=== PATIENT | female | born 1985 | race Caucasian/White ===

== ENCOUNTER 2016-11-21 20:50 | Emergency (ER) | payer MEDICAID, OTHER ==
[~2016-11-21] VITALS: Ht 165.1 cm; Wt 56.7 kg
[~2016-11-21 20:50] MED LIST: AZIT250T PO; HYDR1TAB12 PO; ONDA8TAB12 PO; PREN1TAB58 PO
[2016-11-21 21:03] VITALS: BP 102/56
--- NOTE | 2016-11-21 21:15 | ED.ADGEN ---
Past History Past Medical History: No Pertinent History Past Surgical History: No Surgical History Alcohol Use: None Drug Use: None Adult General HPI HPI Patient is a 31-year-old woman, history of tubal ligation, who presents to the emergency department with a complaint of chest pain and tightness across the anterior portion of her chest, with cough, sore throat, and body aches that began today. Patient denies any sick contacts or exposures, states she feels as though "it is hard to breathe", states cough is nonproductive. Also complaining of upper abdominal cramping, no nausea or vomiting. Denies any swelling extremities, any rashes, any recent travel or procedures, any ingestions or exposures. No history of DVT or PE in self or family members. Patient with oxygen saturation of 99-00% room air, blood pressure is 102/56, heart rate of 81 upon arousing the emergency department. Respiratory rate is 18-20 and unlabored. Review of Systems Review of Systems Constitutional: Denies fever or chills [] Eyes: Denies change in visual acuity, redness, or eye pain [] HENT: Denies nasal congestion, complaining of sore throat times one day. Respiratory: Cough nonproductive, with shortness of breath and anterior chest wall tightness. Cardiovascular: No additional information not addressed in HPI [] GI: Denies abdominal pain, nausea, vomiting, bloody stools or diarrhea [] : Denies dysuria or hematuria [] Musculoskeletal: Denies back pain or joint pain, is complaining of body aches throughout her back. Integument: Denies rash or skin lesions [] Neurologic: Denies headache, focal weakness or sensory changes [] Endocrine: Denies polyuria or polydipsia [] Current Medications Current Medications Current Medications Medications (Trade) Dose Ordered Sig/Liana Start Time Stop Time Status Last Admin Dose Admin Multi-Ingredient Mouthwash/Gargle (Gi Cocktail) 20 ml 1X ONCE 11/21/16 21:30 11/21/16 21:31 DC 11/21/16 21:30 20 ML Naproxen (Naprosyn) 500 mg 1X ONCE 11/21/16 21:30 11/21/16 21:31 DC 11/21/16 21:30 500 MG Ondansetron HCl (Zofran Odt) 4 mg 1X ONCE 11/21/16 22:00 11/21/16 22:01 DC 11/21/16 21:34 4 MG Allergies Allergies Allergies Coded Allergies Type Severity Reaction Last Updated Verified Iodinated Contrast- Oral and IV Dye Allergy Severe 11/21/16 Yes levofloxacin Allergy Severe SEIZURE 12/23/13 No promethazine Allergy Severe SEIZURE 12/23/13 No Physical Exam Physical Exam Constitutional: Well developed, well nourished, no acute distress, non-toxic appearance. [] HENT: Normocephalic, atraumatic, bilateral external ears normal, oropharynx moist, mild injection of the oropharynx, no exudates. No oral exudates, nose normal. [] Eyes: PERRLA, EOMI, conjunctiva normal, no discharge. [] Neck: Normal range of motion, no tenderness, supple, no stridor. [] Cardiovascular:Heart rate regular rhythm, no murmur , S1, S2, rubs or gallops, reproducible anterior chest wall tenderness with palpation. No lesions identified no signs of trauma.[] Lungs & Thorax: Bilateral breath sounds clear to auscultation , no wheezing, rhonchi, rales.[] Abdomen: Bowel sounds normal, soft, no tenderness, no masses, no pulsatile masses. [] Skin: Warm, dry, no erythema, no rash. [] Back: No tenderness, no CVA tenderness. [] Extremities: No tenderness, no cyanosis, no clubbing, ROM intact, no edema. Negative Homans sign.[] Neurologic: Alert and oriented X 3, normal motor function, normal sensory function, no focal deficits noted. [] Psychologic: Affect normal, judgement normal, mood normal. [] Current Patient Data Vital Signs Vital Signs Date Time Temp Pulse Resp B/P (MAP) Pulse Ox O2 Delivery O2 Flow Rate FiO2 11/21/16 23:01 77 20 109/59 (76) 99 Room Air 11/21/16 21:03 98.0 EKG EKG EC: Sinus rhythm, heart rate 71 beats/minute, upright axis, QTC of 426, ID 138, QRS of 70, no ST elevations or depressions, no acute ST abnormalities. As interpreted by me. No prior for comparison.[] Radiology/Procedures Radiology/Procedures Chest x-ray: PA and lateral 2 view: Normal cardiopulmonary silhouette, no infiltrates, no effusions, no pneumothorax, no soft tissue or bony abnormalities identified. As interpreted by me. Course & Med Decision Making Course & Med Decision Making Pertinent Labs and Imaging studies reviewed. (See chart for details) Patient's examination is most consistent with a viral illness, with constellation of cough, sore throat, mild abdominal pain, muscle aches. Chest x- ray obtained did not reveal any evidence of concerning findings, ECG unremarkable, patient was given a GI cocktail the ED, which she did not tolerate well, due to lidocaine. Patient received Zofran, and was feeling better on reevaluation. Urine hCG was negative. I did discuss findings with patient, she is feeling better as stated, vital signs remained stable, with no concerning findings identified. Discussed use [id number] medications, hydration, and Tessalon Perle for discomfort, and concerning symptoms that prompt return to the emergency department for additional evaluation. Patient voiced understanding and agreement plan as stated. Discharged home in stable condition plan, precautions, and prescriptions as stated. Final Impression Final Impression [] Problems: Dragon Disclaimer Dragon Disclaimer This electronic medical record was generated, in whole or in part, using a voice recognition dictation system. Departure: Impression: Primary Impression: Viral illness Additional Impression: Cough Disposition: HOME, SELF-CARE Condition: IMPROVED Scripts Benzonatate (TESSALON PERLE) 100 Mg Capsule 100 MG PO PRN TID Y for COUGH, #15 CAP Prov: PATRICIA MCKEON DO 11/21/16 PATRICIA MCKEON DO Nov 21, 2016 21:15
[2016-11-21] MEDS ORDERED: LIDO:MAALOX 1:1 20 ML SINGLE DOSE PO ONE (21:30)
[2016-11-21] MEDS ORDERED: NAPROXEN 500 MG TABLET PO ONE (21:30)
[2016-11-21] MEDS ORDERED: ONDANSETRON ODT 4 MG TAB.RAPDIS PO ONE (22:00)
[2016-11-21] MEDS ORDERED: BENZ100C PO (22:43)
--- NOTE | 2016-11-22 04:19 | EKG ---
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
--- NOTE | 2016-11-22 09:06 | RAD ---
CHEST PA LATERAL Technique: PA and lateral views of the chest were obtained. Clinical History: Chest pain Comparison: None. Findings: The heart and pulmonary vasculature appear within normal limits. The lungs are clear. The pleural margins are clear. Impression: No acute chest process is seen.
== END 2016-11-21 22:57 | disposition home or self-care (01) ==
LOC: ER 20:50
DX: B34.9 Viral infection, unspecified (principal); R10.10 Upper abdominal pain, unspecified; Z98.51 Tubal ligation status; Z88.8 Allergy status to other drugs, medicaments and biological substances; Z88.1 Allergy status to other antibiotic agents; Z91.041 Radiographic dye allergy status
CPT/HCPCS: 71020; 81025; 93005; 99284; Q0162

== ENCOUNTER 2018-03-18 18:59 | Emergency (ER) | payer MEDICAID, OTHER ==
[~2018-03-18] VITALS: Ht 165.1 cm; Wt 48.3 kg
[~2018-03-18 18:59] MED LIST changes: +BENZ100C PO
--- NOTE | 2018-03-18 19:23 | PHYS DOC ---
Past History Past Medical History: No Pertinent History Past Surgical History: Tubal ligation Alcohol Use: None Drug Use: None Adult General Chief Complaint Chief Complaint: HIP PAIN HPI HPI 32-year-old female presents with right hip and knee pain. The patient was carrying laundry down some steps when she missed a step and fell. She believes that she fell down about 7 steps. She did not hit her head. She was not knocked unconscious. She has pain in her right hip and right knee. She is able to walk but is uncomfortable. She said she has the greatest pain with external rotation of the right hip. She denies significant back pain. She denies numbness, tingling, or change in sensation. She has had no previous injuries to this hip or knee. She denies fever or chills. Review of Systems Review of Systems Constitutional: Denies fever or chills [] Eyes: Denies change in visual acuity, redness, or eye pain [] HENT: Denies nasal congestion or sore throat [] Respiratory: Denies cough or shortness of breath [] Cardiovascular: No additional information not addressed in HPI [] GI: Denies abdominal pain, nausea, vomiting, bloody stools or diarrhea [] : Denies dysuria or hematuria [] Musculoskeletal: Right hip and right knee pain[] Integument: Denies rash or skin lesions [] Neurologic: Denies headache, focal weakness or sensory changes [] Endocrine: Denies polyuria or polydipsia [] All other systems were reviewed and found to be within normal limits, except as documented in this note. Allergies Allergies Allergies Coded Allergies Type Severity Reaction Last Updated Verified Iodinated Contrast- Oral and IV Dye Allergy Severe 11/21/16 Yes aluminum hydroxide Allergy Severe vomiting and syncope 03/18/18 Yes levofloxacin Allergy Severe SEIZURE 12/23/13 No magnesium hydroxide Allergy Severe vomiting and syncope 03/18/18 Yes promethazine Allergy Severe SEIZURE 12/23/13 No simethicone Allergy Severe vomiting and syncope 03/18/18 Yes Physical Exam Physical Exam Constitutional: Well developed, well nourished, no acute distress, non-toxic appearance. [] HENT: Normocephalic, atraumatic, bilateral external ears normal, oropharynx moist, no oral exudates, nose normal. [] Eyes: PERRLA, EOMI, conjunctiva normal, no discharge. [] Neck: Normal range of motion, no tenderness, supple, no stridor. [] Cardiovascular:Heart rate regular rhythm, no murmur [] Lungs & Thorax: Bilateral breath sounds clear to auscultation [] Abdomen: Bowel sounds normal, soft, no tenderness, no masses, no pulsatile masses. [] Skin: Warm, dry, no erythema, no rash. [] Back: No tenderness, no CVA tenderness. [] Extremities: Pain with compression of the right hip. No ecchymosis. Right knee pain with palpation on the lateral side, no ecchymosis or swelling.[] Neurologic: Alert and oriented X 3, normal motor function, normal sensory function, no focal deficits noted. [] Psychologic: Affect normal, judgement normal, mood normal. [] Current Patient Data Vital Signs Vital Signs Date Time Temp Pulse Resp B/P (MAP) Pulse Ox O2 Delivery O2 Flow Rate FiO2 03/18/18 19:06 97.5 69 20 100 Room Air EKG EKG [] Radiology/Procedures Radiology/Procedures [] Impressions: Preliminary interpretation: The patient's hip and knee x-rays are negative for fracture or dislocation. Course & Med Decision Making Course & Med Decision Making Pertinent Labs and Imaging studies reviewed. (See chart for details) The patient's x-rays are negative for fracture. I cannot rule out labral pathology, tendon tear or muscle strain. I will treat the patient with a short course of workup [id number] for pain. I have advised her that if her pain is not rapidly improving the next couple of days, that she should follow up with her PCP for further orthopedic evaluation. She is stable for discharge at this time. [] Dragon Disclaimer Dragon Disclaimer This electronic medical record was generated, in whole or in part, using a voice recognition dictation system. Departure Departure: Impression: Primary Impression: Acute right hip pain Additional Impressions: Fall down stairs Acute pain of right knee Disposition: 01 HOME, SELF-CARE Condition: STABLE Referrals: NON,STAFF (PCP) Patient Instructions: Hip Pain Scripts Hydrocodone Bit/Acetaminophen (NORCO 5-325 TABLET) 1 Each Tablet 1 TAB PO PRN Q6HRS PRN for PAIN, #10 TAB 0 Refills Prov: GRETA ENNIS DO 03/18/18 Problem Qualifiers Additional Impressions: Fall down stairs Encounter type: initial encounter Qualified Codes: W10.8XXA - Fall (on) ( from) other stairs and steps, initial encounter GRETA ENNIS DO Mar 18, 2018 19:23
[2018-03-18] MEDS ORDERED: KETOROLAC 30 MG/ML VIAL. IM ONE (19:30)
[2018-03-18] MEDS ORDERED: HYDR-3165 PO (19:57)
[2018-03-18 20:01] VITALS: BP 97/60
--- NOTE | 2018-03-18 23:34 | RAD ---
Examination: KNEE RIGHT 3V History: FALL DOWN STAIRS, RIGHT KNEE PAIN Comparison/Correlation: None Findings: Total 3 images of the right knee were obtained. Joint spaces are normal. No acute fracture or bony destruction. No joint effusion definitely seen. Soft tissues are unremarkable. Impression: Normal right knee 3 view x-ray exam. Electronically signed by: Alfredo Martinez MD (03/18/2018 11:30 PM) [facility]
--- NOTE | 2018-03-18 23:35 | RAD ---
Examination: HIP RIGHT 2V WITH PELVIS History: FALL DOWN STARS, RIGHT HIP PAIN Comparison/Correlation: None Findings: Frontal view pelvis, frontal view right hip, and frog-leg lateral view right hip were obtained. Joint spaces are normal. No fracture or bony destruction. Soft tissues are unremarkable. Impression: No fracture. No degenerative change. Electronically signed by: Alfredo Martinez MD (03/18/2018 11:31 PM) [facility]
== END 2018-03-18 20:05 | disposition home or self-care (01) ==
LOC: ER 18:59
DX: M25.551 Pain in right hip (principal); M25.561 Pain in right knee; G89.11 Acute pain due to trauma; Z91.041 Radiographic dye allergy status; Z88.1 Allergy status to other antibiotic agents; Z88.8 Allergy status to other drugs, medicaments and biological substances; W10.8XXA Fall (on) (from) other stairs and steps, initial encounter; Y93.89 Activity, other specified; Y92.89 Other specified places as the place of occurrence of the external cause; Y99.8 Other external cause status
CPT/HCPCS: 73502; 73562; 96372; 99283; J1885; 99284

== ENCOUNTER 2018-05-23 20:39 | Emergency (ER) | payer OTHER ==
[~2018-05-23] VITALS: Ht 165.1 cm; Wt 46.4 kg
[~2018-05-23 20:39] MED LIST changes: +HYDR-3165 PO; -HYDR1TAB12 PO; +HYDR1TAB13 PO
[2018-05-23 20:50] VITALS: BP 109/66
--- NOTE | 2018-05-23 21:20 | PHYS DOC ---
Past History Past Medical History: No Pertinent History Past Surgical History: Tubal ligation Alcohol Use: None Drug Use: None Adult General Chief Complaint Chief Complaint: WRIST PAIN HPI HPI Patient is a 32-year-old female who presents with complaint of right wrist pain after falling while going down some stairs. Patient landed on outstretched hand. She states that injury occurred yesterday. She rates pain as being moderate and states that it is painful to move her fingers. She states that nothing improves her symptoms. She denies any other injuries. She rates pain as being moderate. Review of Systems Review of Systems Constitutional: Denies fever or chills [] Respiratory: Denies cough or shortness of breath [] Cardiovascular: No additional information not addressed in HPI [] Musculoskeletal: Positive right wrist pain [] Allergies Allergies Allergies Coded Allergies Type Severity Reaction Last Updated Verified Iodinated Contrast- Oral and IV Dye Allergy Severe 05/23/18 Yes aluminum hydroxide Allergy Severe vomiting and syncope 05/23/18 Yes levofloxacin Allergy Severe SEIZURE 05/23/18 No magnesium hydroxide Allergy Severe vomiting and syncope 05/23/18 Yes promethazine Allergy Severe SEIZURE 05/23/18 No simethicone Allergy Severe vomiting and syncope 05/23/18 Yes Physical Exam Physical Exam Constitutional: Well developed, well nourished, no acute distress, non-toxic appearance. [] Cardiovascular:Heart rate regular rhythm, no murmur [] Lungs & Thorax: Bilateral breath sounds clear to auscultation [] Extremities: Examination of right wrist demonstrates tenderness to palpation around the volar, radial aspect of the wrist. No soft tissue swelling or ecchymosis is noted. [] EKG EKG [] Radiology/Procedures Radiology/Procedures [] Impressions: X-ray of right wrist demonstrates no acute bony abnormalities. Course & Med Decision Making Course & Med Decision Making Pertinent Labs and Imaging studies reviewed. (See chart for details) Patient placed in Velcro wrist splint by ER nurse. Good fit and alignment is noted post splinting with good capillary refill. Dragon Disclaimer Dragon Disclaimer This electronic medical record was generated, in whole or in part, using a voice recognition dictation system. Departure Departure: Impression: Primary Impression: Right wrist sprain Disposition: 01 HOME, SELF-CARE Condition: STABLE Referrals: PCP,NO (PCP) Patient Instructions: Wrist Sprain with Rehab[facility] Problem Qualifiers Primary Impression: Right wrist sprain Encounter type: initial encounter Qualified Codes: S63.501A - Unspecified sprain of right wrist, initial encounter HEMALATHA MARTINEZ Jr. DO May 23, 2018 21:20
--- NOTE | 2018-05-23 21:38 | RAD ---
Right wrist 3 views. HISTORY: Fall, wrist pain 3 views were taken of the right wrist. There is not evidence of an acute fracture or osseous abnormality. IMPRESSION: 1. Negative right wrist. Electronically signed by: Ant Dixon MD (05/23/2018 9:36 PM) [id number]
== END 2018-05-23 21:24 | disposition home or self-care (01) ==
LOC: ER 20:39
DX: S63.501A Unspecified sprain of right wrist, initial encounter (principal); Z91.041 Radiographic dye allergy status; Z88.1 Allergy status to other antibiotic agents; Z88.8 Allergy status to other drugs, medicaments and biological substances; W10.8XXA Fall (on) (from) other stairs and steps, initial encounter; Y93.89 Activity, other specified; Y92.89 Other specified places as the place of occurrence of the external cause; Y99.8 Other external cause status
CPT/HCPCS: 29125; 73110; 99284